=== PATIENT | female | born 1990 | race Caucasian/White ===

== ENCOUNTER 2019-11-21 06:36 | Inpatient (IN) | payer OTHER ==
[2019-11-21] MEDS ORDERED: ONDANSETRON 4 MG/2 ML INJ IV PRN (08:41)
[2019-11-21] MEDS ORDERED: LIDOCAINE (2%) 20 MG/1 ML VIAL 20 ML MDV INFILTRATI ONE (08:41)
[2019-11-21] MEDS ORDERED: TERBUTALINE 1 MG/1 ML INJ SUB-Q PRN (08:41)
[2019-11-21] MEDS ORDERED: MINERAL OIL 30 ML ORAL LIQD PO PRN (08:41)
[2019-11-21] MEDS ORDERED: fentaNYL 100 MCG/2 ML INJ IV PRN (08:41)
[2019-11-21] MEDS ORDERED: BUTORPHANOL 2 MG/1 ML INJ IV PRN (08:41)
[2019-11-21] MEDS ORDERED: ePHEDrine SULFATE 50 MG/1 ML INJ IV PRN (08:41)
[2019-11-21] MEDS ORDERED: LACTATED RINGERS 1,000 ML IV SCH (09:00)
[2019-11-21] MEDS ORDERED: AMPICILLIN/NS 2 GM/100 ML 2 GM/100 ML BAG IV ONE (09:00)
[2019-11-21 09:21] LABS: Hematocrit 38.5 % (30.3-42.9); Hemoglobin 12.7 gm/dl (10.1-14.3); Mean Corpuscular HGB Conc 33 % (30-34); Mean Corpuscular Volume 86 fl (79-97); Platelet Count 332 K/mm3 (140-440); Red Blood Count 4.49 M/mm3 (3.65-5.03); Red Cell Distribution Width 14.6 % (13.2-15.2)
--- NOTE | 2019-11-21 10:01 | History and Physical Report ---
History of Present Illness Date of examination: 11/21/19 Date of admission: 11/21/19 09:06 Chief complaint: Active labor in pre-term pt History of present illness: 89yo, G1 @ 35wks gestation, initiated care with [facility] at 8.1 wks gestation. Her has been complicated by cervical polyps, kidney stones, and +Covid test on 09/18/2019 (no retesting since). She reports to [facility] with reports of leaking of fluids at 0500 this AM. She reports positive FM. Denies any VB. She reports that she has not had any Covid symptoms since August, but she has not been re-tested with a confirmed negative test. Labs: O+, antibody negative; PAP normal; rubella immune; VDRL negative; HBsAg negative; HIV negative; GC/Chlamydia negative; MSAFP/Multiple markers negative; 1hr gtt - 126; GBS unknown. 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 denies: smoking, alcohol abuse, prescription drug abuse, IV drug use - Obstetrical History Expected Date of Delivery: 12/26/19 Actual Gestation: 35 Week(s) 0 Day(s) : 1 Para: 0 Hx # Term Pregnancies: 0 Number of Pregnancies: 0 Spontaneous Abortions: 0 Induced : 0 Number of Living Children: 0 Medications and Allergies Allergies Allergy/AdvReac Type Severity Reaction Status Date / Time No Known Allergies Allergy Unverified 10/07/14 14:40 Home Medications Medication Instructions Recorded Confirmed Last Taken Type No Known Home Medications [No 11/21/19 11/21/19 Unknown History Reported Home Medications] Active Meds: Active Medications Butorphanol Tartrate (Stadol) 2 mg IV Q2H PRN PRN Reason: Pain , Severe (7-10) Ephedrine Sulfate (Ephedrine Sulfate) 10 mg IV Q2M PRN PRN Reason: Hypotension Fentanyl (Sublimaze) 100 mcg IV Q2H PRN PRN Reason: Pain,Severe (7-10) LABOR PAIN Oxytocin/Sodium Chloride (Pitocin/Ns 20 Unit/1000ml Drip) 20 units in 1,000 mls @ 125 mls/hr IV DIRECT BRUNA Lactated Ringer's (Lactated Ringers) 1,000 mls @ 125 mls/hr IV DIRECT BRUNA Last Admin: 11/21/19 09:36 Dose: 125 mls/hr Documented by: Ampicillin Sodium (Ampicillin/Ns 2 Gm/100 Ml) 2 gm in 100 mls @ 100 mls/hr IV ONCE ONE; Protocol Stop: 11/21/19 09:59 Last Admin: 11/21/19 09:36 Dose: 100 mls/hr Documented by: Ampicillin Sodium (Ampicillin/Ns 1 Gm/50 Ml) 1 gm in 50 mls @ 100 mls/hr IV Q4HR BRUNA; Protocol Mineral Oil (Mineral Oil) 30 ml PO QHS PRN PRN Reason: Constipation Ondansetron HCl (Zofran) 4 mg IV Q8H PRN PRN Reason: Nausea And Vomiting Terbutaline Sulfate (Brethine) 0.25 mg SUB-Q ONCE PRN PRN Reason: Hyperstimulation/Hypertonicity Review of Systems All systems: negative Genitourinary: contractions (irregular) - Vital Signs Vital signs: Vital Signs Pulse Pulse Ox 103 H 98 11/21/19 06:42 11/21/19 06:42 Temp Pulse Resp BP Pulse Ox 98.7 F 76 123/72 97 11/21/19 07:14 11/21/19 09:55 11/21/19 08:35 11/21/19 09:55 - Physical Exam Breasts: Positive: normal Cardiovascular: Regular rate Lungs: Positive: Normal air movement Abdomen: Positive: other (gravid) Vagina: Positive: other (clear fluids) Uterus: Positive: enlarged Extremities: Positive: normal Deep Tendon Reflex Grade: Normal +2 - Obstetrical FHR: category 1 Uterine Contraction Monitor Mode: External Cervical Dilatation: 5 (per RN) Cervical Effacement Percentage: 80 station: -2 Uterine Contraction Pattern: Absent Uterine Tone Measurement Phase: Resting Results Result Diagrams: 11/21/19 08:50 All other labs normal. Assessment and Plan - Patient Problems (1) PROM (premature rupture of membranes) Current Visit: Yes Status: Acute Qualifiers: PROM gestational age: -third trimester Plan to address problem: Admit to L & D Betamethasone 150mg q 24 hrs x IM 2 doses Temps q 1 hr Pain meds as desired Expectant management
[2019-11-21] MEDS ORDERED: BETAMET ACET/BETAMET NA PH 6 MG/ML INJ 5 ML MDV IM SCH (11:00)
[2019-11-21] MEDS ORDERED: AMPICILLIN/NS 1 GM/50 ML 1 GM/50 ML BAG IV SCH (14:00)
--- NOTE | 2019-11-21 16:05 | Progress Note ---
Assessment and Plan - Patient Problems (1) PROM (premature rupture of membranes) Current Visit: Yes Status: Acute Qualifiers: PROM gestational age: -third trimester Plan to address problem: Admit to L & D Betamethasone 150mg q 24 hrs x IM 2 doses Temps q 1 hr Pain meds as desired Expectant management Anticipate (2) GBS screening not performed Current Visit: Yes Status: Acute Plan to address problem: Continue GBS prophylaxis as directed Subjective - Subjective Date of service: 11/21/19 Principal diagnosis: Active labor Interval history: 89yo, G1 @ 35wks gestation, initiated care with [facility] at 8.1 wks gestation. Her has been complicated by cervical polyps, kidney stones, and +Covid test on 09/18/2019 (no retesting since). She reports to [facility] with reports of leaking of fluids at 0500 this AM. She reports positive FM. Denies any VB. She reports that she has not had any Covid symptoms since August, but she has not been re-tested with a confirmed negative test. Labs: O+, antibody negative; PAP normal; rubella immune; VDRL negative; HBsAg negative; HIV negative; GC/Chlamydia negative; MSAFP/Multiple markers negative; 1hr gtt - 126; GBS unknown. Patient reports: new complaints ("feeling pressure"), loss of fluid (clear fluids), movement normal, contractions (irregular), no vaginal bleeding Objective - Vital Signs Vital Signs: Vital Signs - 12hr 11/21/19 11/21/19 11/21/19 06:42 07:13 07:14 Temperature 98.7 F Pulse Rate 103 H 76 Respiratory Rate Blood Pressure 131/69 Blood Pressure [Left] O2 Sat by Pulse 98 Oximetry 11/21/19 11/21/19 11/21/19 08:35 08:40 08:45 Temperature Pulse Rate 73 79 73 Respiratory Rate Blood Pressure 123/72 Blood Pressure [Left] O2 Sat by Pulse 98 98 Oximetry 11/21/19 11/21/19 11/21/19 08:50 08:55 09:00 Temperature Pulse Rate 88 75 72 Respiratory Rate Blood Pressure Blood Pressure [Left] O2 Sat by Pulse 98 98 98 Oximetry 11/21/19 11/21/19 11/21/19 09:05 09:10 09:15 Temperature Pulse Rate 78 91 H 70 Respiratory Rate Blood Pressure Blood Pressure [Left] O2 Sat by Pulse 98 98 98 Oximetry 11/21/19 11/21/19 11/21/19 09:20 09:25 09:30 Temperature Pulse Rate 83 81 76 Respiratory Rate Blood Pressure Blood Pressure [Left] O2 Sat by Pulse 98 98 98 Oximetry 11/21/19 11/21/19 11/21/19 09:35 09:40 09:45 Temperature Pulse Rate 87 89 76 Respiratory Rate Blood Pressure Blood Pressure [Left] O2 Sat by Pulse 98 99 97 Oximetry 11/21/19 11/21/19 11/21/19 09:50 09:55 10:00 Temperature Pulse Rate 87 76 68 Respiratory Rate Blood Pressure Blood Pressure [Left] O2 Sat by Pulse 98 97 97 Oximetry 11/21/19 11/21/19 11/21/19 10:05 10:10 10:15 Temperature Pulse Rate 76 73 72 Respiratory Rate Blood Pressure Blood Pressure [Left] O2 Sat by Pulse 98 98 98 Oximetry 11/21/19 11/21/19 11/21/19 10:20 10:25 10:30 Temperature Pulse Rate 78 77 74 Respiratory Rate Blood Pressure Blood Pressure [Left] O2 Sat by Pulse 97 97 98 Oximetry 11/21/19 11/21/19 11/21/19 10:35 10:40 10:45 Temperature Pulse Rate 83 84 87 Respiratory Rate Blood Pressure Blood Pressure [Left] O2 Sat by Pulse 97 97 97 Oximetry 11/21/19 11/21/19 11/21/19 10:50 10:55 10:56 Temperature 98.1 F Pulse Rate 78 85 70 Respiratory 18 Rate Blood Pressure 113/74 Blood Pressure 113/74 [Left] O2 Sat by Pulse 97 96 98 Oximetry 11/21/19 11/21/19 11/21/19 11:00 11:05 11:10 Temperature Pulse Rate 60 70 72 Respiratory Rate Blood Pressure Blood Pressure [Left] O2 Sat by Pulse 98 97 97 Oximetry 11/21/19 11/21/19 11/21/19 11:15 11:20 11:25 Temperature Pulse Rate 72 69 91 H Respiratory Rate Blood Pressure Blood Pressure [Left] O2 Sat by Pulse 98 99 97 Oximetry 11/21/19 11/21/19 11/21/19 11:30 11:35 11:40 Temperature Pulse Rate 72 84 80 Respiratory Rate Blood Pressure Blood Pressure [Left] O2 Sat by Pulse 98 97 97 Oximetry 11/21/19 11/21/19 11/21/19 11:45 11:50 11:55 Temperature Pulse Rate 78 77 71 Respiratory Rate Blood Pressure Blood Pressure [Left] O2 Sat by Pulse 97 98 98 Oximetry 11/21/19 11/21/19 11/21/19 12:00 12:03 12:05 Temperature 97.9 F Pulse Rate 68 75 73 Respiratory Rate Blood Pressure 110/72 Blood Pressure [Left] O2 Sat by Pulse 97 97 Oximetry 11/21/19 11/21/19 11/21/19 12:10 12:22 12:27 Temperature Pulse Rate 82 94 H 80 Respiratory Rate Blood Pressure Blood Pressure [Left] O2 Sat by Pulse 98 97 97 Oximetry 11/21/19 11/21/19 11/21/19 12:32 12:37 12:42 Temperature Pulse Rate 80 78 71 Respiratory Rate Blood Pressure Blood Pressure [Left] O2 Sat by Pulse 97 97 97 Oximetry 11/21/19 11/21/19 11/21/19 12:47 12:52 12:57 Temperature Pulse Rate 73 70 91 H Respiratory Rate Blood Pressure Blood Pressure [Left] O2 Sat by Pulse 98 97 98 Oximetry 11/21/19 11/21/19 11/21/19 13:02 13:07 13:10 Temperature 98.1 F Pulse Rate 69 76 Respiratory Rate Blood Pressure 104/61 Blood Pressure [Left] O2 Sat by Pulse 97 97 Oximetry 11/21/19 11/21/19 11/21/19 13:12 13:17 13:22 Temperature Pulse Rate 79 87 71 Respiratory Rate Blood Pressure Blood Pressure [Left] O2 Sat by Pulse 98 97 98 Oximetry 11/21/19 11/21/19 11/21/19 13:27 13:32 13:37 Temperature Pulse Rate 77 84 92 H Respiratory Rate Blood Pressure Blood Pressure [Left] O2 Sat by Pulse 98 99 96 Oximetry 11/21/19 11/21/19 11/21/19 13:42 13:47 13:52 Temperature Pulse Rate 71 82 75 Respiratory Rate Blood Pressure Blood Pressure [Left] O2 Sat by Pulse 98 96 97 Oximetry 11/21/19 11/21/19 11/21/19 13:57 14:02 14:06 Temperature Pulse Rate 72 81 81 Respiratory Rate Blood Pressure 118/64 Blood Pressure [Left] O2 Sat by Pulse 97 97 92 Oximetry 11/21/19 11/21/19 11/21/19 14:07 14:12 14:17 Temperature Pulse Rate 84 74 81 Respiratory Rate Blood Pressure Blood Pressure [Left] O2 Sat by Pulse 98 97 98 Oximetry 11/21/19 11/21/19 11/21/19 14:22 14:24 14:27 Temperature Pulse Rate 79 89 85 Respiratory Rate Blood Pressure Blood Pressure [Left] O2 Sat by Pulse 97 93 99 Oximetry 11/21/19 11/21/19 11/21/19 14:29 14:32 14:35 Temperature Pulse Rate 71 80 71 Respiratory Rate Blood Pressure Blood Pressure [Left] O2 Sat by Pulse 94 96 94 Oximetry 11/21/19 11/21/19 11/21/19 14:37 14:42 14:47 Temperature Pulse Rate 71 82 79 Respiratory Rate Blood Pressure Blood Pressure [Left] O2 Sat by Pulse 96 96 96 Oximetry 11/21/19 11/21/19 11/21/19 14:52 14:57 14:58 Temperature Pulse Rate 88 72 87 Respiratory Rate Blood Pressure Blood Pressure [Left] O2 Sat by Pulse 96 97 94 Oximetry 11/21/19 11/21/19 11/21/19 15:02 15:07 15:12 Temperature Pulse Rate 67 85 72 Respiratory Rate Blood Pressure 114/62 Blood Pressure [Left] O2 Sat by Pulse 97 98 99 Oximetry 11/21/19 11/21/19 11/21/19 15:17 15:21 15:22 Temperature Pulse Rate 85 95 H 70 Respiratory Rate Blood Pressure Blood Pressure [Left] O2 Sat by Pulse 96 94 97 Oximetry 11/21/19 11/21/19 11/21/19 15:27 15:32 15:33 Temperature Pulse Rate 76 77 82 Respiratory Rate Blood Pressure Blood Pressure [Left] O2 Sat by Pulse 98 95 94 Oximetry 11/21/19 11/21/19 11/21/19 15:37 15:41 15:42 Temperature Pulse Rate 75 71 92 H Respiratory Rate Blood Pressure Blood Pressure [Left] O2 Sat by Pulse 96 80 L 97 Oximetry 11/21/19 11/21/19 11/21/19 15:47 15:52 15:53 Temperature Pulse Rate 81 67 87 Respiratory Rate Blood Pressure Blood Pressure [Left] O2 Sat by Pulse 98 95 94 Oximetry 11/21/19 15:57 Temperature Pulse Rate 68 Respiratory Rate Blood Pressure Blood Pressure [Left] O2 Sat by Pulse 97 Oximetry - Exam Breasts: deferred Cardiovascular: Regular rate Lungs: Normal air movement FHR: category 1 (with some variable decelerations) Uterine Contraction Monitor Mode: External Cervical Dilatation: 6.5 (per RN) Cervical Effacement Percentage: 80 station: -1 Uterine Contraction Pattern: Irregular Uterine Tone Measurement Phase: Resting Uterine Contraction Intensity: Moderate - Labs Labs: Laboratory Results - last 24 hr 11/21/19 11/21/19 11/21/19 08:50 08:50 12:46 WBC 7.8 RBC 4.49 Hgb 12.7 Hct 38.5 MCV 86 MCH 28 MCHC 33 RDW 14.6 Plt Count 332 C-Reactive Protein 0.70 Blood Type O POSITIVE Antibody Screen Negative
[2019-11-21] MEDS: OXYTOCIN 20 UNIT/1000ML DRIP 20 UNITS/1,000 ML BAG IV SCH ×2 (16:37→17:26)
[2019-11-21] MEDS ORDERED: LANOLIN/ZINC/DIMETHICONE (LANSINOH) 7 GM TP PRN (16:51)
[2019-11-21] MEDS ORDERED: WITCH HAZEL/ GLYCERIN PAD TP PRN (16:51)
[2019-11-21] MEDS ORDERED: MAGNESIUM HYDROXIDE (MOM) ORAL LIQD UDC PO PRN (16:51)
[2019-11-21] MEDS ORDERED: PROMETHAZINE 25 MG TAB PO PRN (16:51)
[2019-11-21] MEDS ORDERED: diphenhydrAMINE 25 MG CAP PO PRN (16:51)
--- NOTE | 2019-11-21 17:03 | Procedure Note ---
OB Delivery Note - Delivery Date of Delivery: 11/21/19 (1630) Surgeon: JACE PAULINO (JASSON) Estimated blood loss: 100cc - Vaginal Delivery presentation: vertex Delivery position: OA (ISIAH) Intrapartum events: labor-<37 weeks Delivery induction: none Delivery augmentation: rupture of membranes (SROM at 0500) Delivery monitor: external FHT, external uterine Route of delivery: Delivery placenta: spontaneous (1634, judge) Delivery cord: 3 umbilical vessels Episiotomy: none Delivery laceration: none Delivery comments: of viable female , placed directly to maternal abdomen. Manually dried with warm blankets producing spontaneous cry. Cord double clamped, cut by FOB after cessation of pulsation. Baby given to awaiting NICU team for evaluation. Cord blood collected and sent to lab. Placenta spontaneously delivered, nu, disposed per hospital policy. Uterus firm @ U-2, hemostasis maintained. Perineum intact. Mother safe, stable, left in care of RN. Baby taken to NICU secondary to gestation. - Infant A at 1 minute: 8 at 5 minutes: 9 Gender: Female (Weight: 2289gms (5lbs 0ozs) 17 inches)
[2019-11-21] MEDS: IBUPROFEN 600 MG TAB PO SCH (17:51)
[2019-11-21] MEDS: oxyCODONE /ACETAMINOPHEN 5-325MG TAB PO PRN (21:52)
[2019-11-21] MEDS: FERROUS SULFATE 325 MG TAB PO SCH (21:52)
[2019-11-22] MEDS: IBUPROFEN 600 MG TAB PO SCH ×3 (02:44→21:14)
[2019-11-22] MEDS: oxyCODONE /ACETAMINOPHEN 5-325MG TAB PO PRN (05:44)
[2019-11-22] MEDS ORDERED: DIPHtheria,PERTUSSIS(ACELL),TETANUS VACCINE/PF 0.5 ML VIAL IM ONE (06:00)
[2019-11-22 06:35] LABS: Hematocrit 31.3 % (30.3-42.9); Hemoglobin 10.4 gm/dl (10.1-14.3)
[2019-11-22] MEDS: PRENATAL VIT27-FE FUMARATE-FOLIC ACID VIT TAB PO SCH (10:26)
[2019-11-22] MEDS: FERROUS SULFATE 325 MG TAB PO SCH ×2 (10:26→21:14)
--- NOTE | 2019-11-22 12:42 | Progress Note ---
Assessment and Plan A: day 1 S/P . Anemia. P: Supplement with iron. Continue current management. Subjective - Subjective Date of service: 11/22/19 Principal diagnosis: day 1 S/P Interval history: day 1 S/P . Doing well. Patient reports: appetite normal, voiding normally, pain well controlled, flatus, ambulating normally, no dizzy ambulation, no nauseated : doing well Objective - Vital Signs Latest vital signs: Vital Signs Temp Pulse Resp BP BP Pulse Ox 11/22/19 11:42 98.3 F 72 20 95/53 95 11/22/19 07:36 97.9 F 61 20 100/63 96 11/22/19 00:25 98.1 F 64 18 97/57 95 11/21/19 20:41 97.9 F 67 18 104/74 95 11/21/19 18:40 98.6 F 80 20 118/60 97 11/21/19 17:46 98.4 F 11/21/19 17:44 88 98 11/21/19 17:39 98 H 98 11/21/19 17:37 91 H 118/64 11/21/19 17:34 79 98 11/21/19 17:29 90 98 11/21/19 17:24 98 H 100 11/21/19 17:22 93 H 119/66 11/21/19 17:19 94 H 100 11/21/19 17:14 101 H 100 11/21/19 17:09 99 H 100 11/21/19 17:08 90 113/76 11/21/19 17:04 104 H 100 11/21/19 16:59 101 H 100 11/21/19 16:54 91 H 100 11/21/19 16:52 94 H 119/71 11/21/19 16:49 93 H 100 11/21/19 16:44 95 H 99 11/21/19 16:23 78 98 11/21/19 16:21 94 11/21/19 16:18 80 99 11/21/19 16:13 63 82 L 11/21/19 16:12 77 99 11/21/19 16:07 75 97 11/21/19 16:03 64 94 11/21/19 16:02 61 114/69 94 11/21/19 15:57 68 97 11/21/19 15:53 87 94 11/21/19 15:52 67 95 11/21/19 15:47 81 98 11/21/19 15:42 92 H 97 11/21/19 15:41 71 80 L 11/21/19 15:37 75 96 11/21/19 15:33 82 94 11/21/19 15:32 77 95 11/21/19 15:27 76 98 11/21/19 15:22 70 97 11/21/19 15:21 95 H 94 11/21/19 15:17 85 96 11/21/19 15:12 72 99 11/21/19 15:07 85 98 11/21/19 15:02 67 114/62 97 11/21/19 14:58 87 94 11/21/19 14:57 72 97 11/21/19 14:52 88 96 11/21/19 14:47 79 96 11/21/19 14:42 82 96 11/21/19 14:37 71 96 11/21/19 14:35 71 94 11/21/19 14:32 80 96 11/21/19 14:29 71 94 11/21/19 14:27 85 99 11/21/19 14:24 89 93 11/21/19 14:22 79 97 11/21/19 14:17 81 98 11/21/19 14:12 74 97 11/21/19 14:07 84 98 11/21/19 14:06 81 92 11/21/19 14:02 81 118/64 97 11/21/19 13:57 72 97 11/21/19 13:52 75 97 11/21/19 13:47 82 96 11/21/19 13:42 71 98 11/21/19 13:37 92 H 96 11/21/19 13:32 84 99 11/21/19 13:27 77 98 11/21/19 13:22 71 98 11/21/19 13:17 87 97 11/21/19 13:12 79 98 11/21/19 13:10 98.1 F 11/21/19 13:07 76 97 11/21/19 13:02 69 104/61 97 11/21/19 12:57 91 H 98 11/21/19 12:52 70 97 11/21/19 12:47 73 98 11/21/19 12:42 71 97 Intake and Output 11/21/19 11/22/19 11/22/19 23:59 07:59 15:59 Intake Total 342.083 120 120 Output Total 1000 400 Balance -657.917 -280 120 Intake: IV 102.083 PITOCin/NS 20 UNIT/1000ML 102.083 DRIP 20 units In 1,000 ml @ 125 mls/hr IV DIRECT BRUNA Rx#:[id number] Oral 240 120 120 Output: Urine 1000 400 Void 1000 400 Other: Total, Intake Amount 120 120 120 Total, Output Amount 600 400 # Voids Void 1 Estimated Blood Loss 100 - Exam Abdomen: Present: normal appearance, soft. Absent: distention, tenderness, guarding, rigidity Uterus: Present: normal, firm, fundal height below umbilicus. Absent: bogginess, tenderness Extremities: Present: normal. Absent: tenderness
[2019-11-23] MEDS: IBUPROFEN 600 MG TAB PO SCH ×3 (05:34→17:31)
[2019-11-23] MEDS: PRENATAL VIT27-FE FUMARATE-FOLIC ACID VIT TAB PO SCH (09:25)
[2019-11-23] MEDS: FERROUS SULFATE 325 MG TAB PO SCH (09:25)
--- NOTE | 2019-11-23 10:57 | Progress Note ---
Assessment and Plan A: day 2 S/P . Anemia. P: Discharge patient home today. Discussed with patient discharge instructions and warning signs. Advised patient to avoid lifting, intercourse, and heavy housework. Advised patient to follow up in OB clinic in 4-6 weeks for exam. Patient voiced understanding of all instructions. Subjective - Subjective Date of service: 11/23/19 Principal diagnosis: day 2 S/P Interval history: day 2 S/P . Doing well. Patient desires discharge home today. Patient reports: appetite normal, voiding normally, pain well controlled, flatus, ambulating normally, no dizzy ambulation, no nauseated [place]: doing well Objective - Vital Signs Latest vital signs: Vital Signs Temp Pulse Resp BP BP Pulse Ox 11/23/19 07:40 98.0 F 60 20 113/66 96 11/23/19 01:41 97.8 F 58 L 20 96/49 96 11/22/19 15:56 98.6 F 68 20 106/65 96 11/22/19 11:42 98.3 F 72 20 95/53 95 Intake and Output 11/22/19 11/23/19 11/23/19 23:59 07:59 15:59 Intake Total 240 120 240 Balance 240 120 240 Intake: Oral 240 120 240 Other: Total, Intake Amount 120 120 240 # Voids Void 1 1 1 - Exam Cardiovascular: Present: Regular rate, Normal S1, Normal S2 Lungs: Present: Clear to auscultation Abdomen: Present: normal appearance, soft. Absent: distention, tenderness, guarding, rigidity Uterus: Present: normal, firm, fundal height below umbilicus. Absent: bogginess, tenderness Extremities: Present: normal. Absent: tenderness, edema
--- NOTE | 2019-11-23 11:01 | Discharge Summary ---
Providers - Providers Date of Admission: 11/21/19 09:06 Date of discharge: 11/23/19 Attending physician: YEIMI PERALES MD Primary care physician: YEIMI PERALES MD Hospitalization Reason for admission: active labor, labor Delivery: Episiotomy: none Laceration: none Other procedures: none complications: none Discharge diagnosis: IUP at term delivered [place] baby: female Pertinent studies: Labs Hospital course: Normal hospital course. Condition at discharge: Good Disposition: DC-01 TO HOME OR SELFCARE - Discharge Diagnoses (1) delivery Status: Acute (2) Anemia Status: Acute Plan - Provider Discharge Summary Activity: routine, no sex for 6 weeks, no heavy lifting 4 weeks, no strenuous exercise Diet: routine Instructions: routine Additional instructions: Continue vitamins and iron supplements at home. Call your doctor immediately for: * Fever > 100.5 * Heavy vaginal bleeding ( >1 pad per hour) * Severe persistent headache * Shortness of breath * Reddened, hot, painful area to leg or breast - Follow up plan Follow up: YEIMI PERALES MD [Primary Care Provider] - 6 Weeks
[2019-11-23 16:23] VITALS: BP 118/68
== END 2019-11-23 18:00 | disposition home or self-care (01) | DRG 807 ==
LOC: TRG 06:36 → APU 06:37 → TRG 09:06 → LD 09:06 → OB 18:15
PROVIDERS: ADMIT Obstetrics & Gynecology; ATTEND Obstetrics & Gynecology
PROC: 10E0XZZ Delivery of Products of Conception, External Approach (ICD-10-PCS; principal; 2019-11-21)
PROC: 3E0234Z Introduction of Serum, Toxoid and Vaccine into Muscle, Percutaneous Approach (ICD-10-PCS; 2019-11-21)
DX: O42.013 Preterm premature rupture of membranes, onset of labor within 24 hours of rupture, third trimester (principal); Z37.0 Single live birth; Z3A.35 35 weeks gestation of pregnancy; Z23 Encounter for immunization; O90.81 Anemia of the puerperium; D64.9 Anemia, unspecified
CPT/HCPCS: 36415; 85014; 85018; 85027; 86140; 86850; 86900; 86901; 88307; 90715; G0378; J0290; J0702; J2590; J3010; J7120